=== PATIENT | male | born 1980 | race African-American/Black ===

== ENCOUNTER 2017-02-28 16:08 | Emergency (ER) | payer OTHER ==
[2017-02-28 16:18] VITALS: BP 145/98; PULSE 100; RESP 16; TEMP 98.6; O2SAT 93
--- NOTE | 2017-02-28 16:45 | EDPHY ---
H & P Stated Complaint: Allergic reaction - un known source. 3rd time in 3 weeks. Time Seen by Provider: 02/28/17 16:26 HPI/ROS: CHIEF COMPLAINT: Questionable allergic reaction HISTORY OF PRESENT ILLNESS: The patient presents the ED with a questionable allergic reaction. The patient reportedly was eating and developed symptoms of dyspnea and perceived swelling in the back of his throat. The patient took a total of 5 Benadryl tablets after the development of the symptoms. He presents to the ED secondary to mild ongoing symptoms. The patient was seen in emergency department approximately 3 weeks ago with similar symptoms. He was prescribed prednisone at that point time. The patient was referred to an allergy professor of criminal justice however has not made that appointment. The patient denies any other prescription medications. He denies past medical history. He does have a history of anxiety. He reportedly has been off of his Wellbutrin for the past 3 days. The patient complains of mild sleepiness secondary to the Benadryl he took earlier. He reports his subjective throat swelling and dyspnea have essentially resolved. REVIEW OF SYSTEMS: A comprehensive 10 point review of systems is otherwise negative aside from elements mentioned in the history of present illness. Source: Patient Exam Limitations: No limitations - Personal History Current Tetanus Diphtheria and Acellular Pertussis (TDAP): Yes - Medical/Surgical History Hx Asthma: No Hx Chronic Respiratory Disease: No Hx Diabetes: No Hx Cardiac Disease: No Hx Renal Disease: No Hx Cirrhosis: No Hx Alcoholism: No Hx HIV/AIDS: No Hx Splenectomy or Spleen Trauma: No Other PMH: Denies - Social History Smoking Status: Never smoked - Physical Exam Exam: General Appearance: Alert, no distress Eyes: Pupils equal and round no pallor or injection ENT, Mouth: Mucous membranes moist Respiratory: There are no retractions, lungs are clear to auscultation Cardiovascular: Regular rate and rhythm Gastrointestinal: Abdomen is soft and nontender, no masses, bowel sounds normal Neurological: A&O, normal motor function, normal sensory exam, normal cranial nerves Skin: Warm and dry, no rashes Musculoskeletal: Neck is supple nontender Extremities: symmetrical, full range of motion Constitutional: Initial Vital Signs Temperature (C) 37 C 02/28/17 16:15 Heart Rate 100 02/28/17 16:15 Respiratory Rate 16 02/28/17 16:15 Blood Pressure 145/98 H 02/28/17 16:15 O2 Sat (%) 93 02/28/17 16:15 O2 Delivery Mode Room Air Allergies/Adverse Reactions: environmental Allergy (Uncoded 02/28/17 16:19) Home Medications: Medication Instructions Recorded predniSONE [prednisone 20mg (RX)] 3 tab PO DAILY #12 tab 02/28/17 Medical Decision Making ED Course/Re-evaluation: The patient presents to the ED with concerns about a recurrent allergic reaction. The patient did take 100 mg of Benadryl prior to arrival. He arrives at the emergency department in no acute distress. His lungs are clear to auscultation bilaterally. His oropharynx demonstrates no evidence of edema. He has no clinical evidence of urticaria. The patient tells me that he was having symptoms of a mild skin rash on his face prior to the development of his symptoms today. The patient reports history of cutaneous symptoms during his prior allergic reaction 3 weeks ago. The plan was to observe the patient in the emergency department for progression of symptoms. The patient did leave the department prior to receiving discharge instructions and prescription for prednisone. I did contact the patient asking him to return to the emergency department to get a prescription for prednisone and left a message on his voicemail. Differential Diagnosis: Differential diagnosis considered includes hives, urticaria, anaphylaxis, angioedema Departure - Departure Disposition: Home, Routine, Self-Care Clinical Impression: Allergic reaction Condition: Good Instructions: Allergies (ED) Additional Instructions: 1. Please schedule a follow-up appointment with your primary care provider. 2. Please take prednisone as prescribed for next 4 days. 3. Please return to the ED for markedly worsening symptoms, difficulty breathing or other concerns. Referrals: NONE *PRIMARY CARE P,. [Primary Care Provider] - As per Instructions Prescriptions: predniSONE [prednisone 20mg (RX)] 3 tab PO DAILY #12 tab
== END 2017-02-28 17:54 | disposition home or self-care (01) ==
DX: R06.00 Dyspnea, unspecified (principal); T45.0X5A Adverse effect of antiallergic and antiemetic drugs, initial encounter